=== PATIENT | female | born 1945 | race Caucasian/White ===

== ENCOUNTER → 2021-11-17 | Outpatient (CLI) | payer MEDICARE, OTHER | LOC: KOH-I 15:05 | DX: M79.671 Pain in right foot (principal) | CPT/HCPCS: 73630 ==

== ENCOUNTER → 2022-01-05 | Outpatient (CLI) | payer MEDICARE, OTHER | LOC: US 13:54 | DX: I73.9 Peripheral vascular disease, unspecified (principal); R22.43 Localized swelling, mass and lump, lower limb, bilateral | CPT/HCPCS: 93925 ==

== ENCOUNTER → 2022-03-10 | Day surgery (SDC) | payer MEDICARE, OTHER ==
[~2022-03-10] MED LIST: ALPRAZOLAM ER1 MG PO; ASPIRIN CHEWABL81 MG PO; BISOPROLOL-HCT1 EAC2 PO; BUTALBITAL-ASP1 EACH PO; CRESTOR20 MG PO; CYMBALTA60 MG PO; LEVOTHYROXINE150 MCG PO; METFORMIN HCL500 MG PO; OMEPRAZOLE20 MG PO; PROAMATINE 2.52.5 MG PO; ROPINIROLE HCL0.5 MG PO; TIMOPTIC5 M1 EYEBOTH; VASCEPA1 GM PO
== END | disposition home or self-care (01) ==
LOC: OR 08:06
PROVIDERS: Internal Medicine Gastroenterology
PROC: 0DB78ZX Excision of Stomach, Pylorus, Via Natural or Artificial Opening Endoscopic, Diagnostic (ICD-10-PCS; 2022-03-10)
PROC: 0DB38ZX Excision of Lower Esophagus, Via Natural or Artificial Opening Endoscopic, Diagnostic (ICD-10-PCS; principal; 2022-03-10 13:00)
DX: K29.50 Unspecified chronic gastritis without bleeding (principal); K21.00 Gastro-esophageal reflux disease with esophagitis, without bleeding; K22.70 Barrett's esophagus without dysplasia; K76.0 Fatty (change of) liver, not elsewhere classified; K44.9 Diaphragmatic hernia without obstruction or gangrene; I10 Essential (primary) hypertension; M79.7 Fibromyalgia; E03.9 Hypothyroidism, unspecified; E78.00 Pure hypercholesterolemia, unspecified; E66.9 Obesity, unspecified; Z68.30 Body mass index [BMI] 30.0-30.9, adult; Z79.82 Long term (current) use of aspirin; Z79.890 Hormone replacement therapy; Z79.899 Other long term (current) drug therapy; Z88.5 Allergy status to narcotic agent
CPT/HCPCS: 82962; J2704; J7040